=== PATIENT | male | born 1950 | race Caucasian/White ===

== ENCOUNTER → 2017-05-30 | Outpatient (CLI) | payer MEDICARE, OTHER | END | disposition home or self-care (01) | LOC: YCFC.O 07:35 | PROVIDERS: ATTEND Nurse Practitioner Family | DX: Z00.00 Encounter for general adult medical examination without abnormal findings (principal); Z13.220 Encounter for screening for lipoid disorders; Z12.5 Encounter for screening for malignant neoplasm of prostate; D64.9 Anemia, unspecified | CPT/HCPCS: 36415; 80053; 80061; 85025; G0103 ==

== ENCOUNTER → 2017-10-29 | Outpatient (CLI) | payer MEDICARE, OTHER ==
--- NOTE | 2017-10-29 10:13 | RAD ---
EXAM DESCRIPTION: Hip,Left 2 Views CLINICAL HISTORY: 67 years, Male, HIP PAIN COMPARISON: Previous study November 23, 2015 TECHNIQUE: AP and frog leg lateral views of the left hip FINDINGS: Metallic wires and densities are seen lateral to the neck of the femoral component of the prosthesis. These are unchanged compared to previous study. Multiple fine hairlike densities are seen overlying the proximal thigh thought to be in the soft tissues. There is vascular calcification. No complicating fracture of the left hemipelvis. No hip dislocation. Left hemisacrum is questionable thought to be related to overlying calcifications rather than sacral fracture. No change in alignment since previous study. Total left hip arthroplasty is noted. IMPRESSION: Total left hip arthroplasty with no acute hardware complication, fracture or dislocation. Electronically signed by: Navneet Musa MD 10/29/2017 10:12 AM CDT
--- NOTE | 2017-10-29 10:16 | RAD ---
EXAM DESCRIPTION: Knee,Left Complete CLINICAL HISTORY: 67 years, Male, KNEE PAIN COMPARISON: None TECHNIQUE: 4 views of the left knee FINDINGS: No fracture or dislocation. Bones appear osteopenic or osteoporotic with prominent trabecular pattern. Narrowed appearance of medial more than lateral compartments on frontal view. There is sclerosis and eburnation of the lateral compartment. Prominent lateral joint line spurring. Chondrocalcinosis is seen in the medial compartment. Lateral view shows normal position of the patella. Marked narrowing of the patellofemoral joint with prominent posterior patellar spurring. Question small suprapatellar knee joint effusion. Normal contour of quadriceps and patellar tendons. Prominent spurring of the posterior femoral condyles and posterior tibial margin. Meniscal calcification is seen posteriorly. There is vascular calcification in the proximal leg and popliteal region. No abnormal patellar tilt or subluxation on patellar sunrise view. Compared to previous study 18 2015, no change is evident. IMPRESSION: Degenerative changes as described. Electronically signed by: Navneet Musa MD 10/29/2017 10:15 AM CDT
--- NOTE | 2017-10-29 10:18 | RAD ---
EXAM DESCRIPTION: Pelvis CLINICAL HISTORY: 67 years Male, HIP PAIN COMPARISON: None. TECHNIQUE: Single frontal x-ray view of the pelvis including both hips FINDINGS: Total left hip arthroplasty is noted with no dislocation or hardware complication. Old hardware is seen lateral to the neck of the prosthesis with wires. Fine hairlike densities are seen in the proximal thigh unchanged. There is mild narrowing of the right hip joint. Degenerative changes are seen in the lower L-spine and SI joints. IMPRESSION: Negative for fracture or dislocation. Electronically signed by: Navneet Musa MD 10/29/2017 10:17 AM CDT
== END | disposition home or self-care (01) ==
LOC: RAD 07:53
PROVIDERS: ATTEND Orthopaedic Surgery
DX: M25.562 Pain in left knee (principal); M25.552 Pain in left hip

== ENCOUNTER → 2017-11-03 | Outpatient (CLI) | payer MEDICARE, OTHER ==
--- NOTE | 2017-11-04 10:02 | MRI ---
Study: MRI of the Left Femur. Indication: Left thigh mass. 2 weeks of pain and swelling. Technique: Multiplanar, multi sequence MRI of the left femur was obtained without intravenous contrast. Comparison: Radiographs October 29, 2017. Findings: Extensive post surgical changes of left total hip arthroplasty are present button included in their entirety within the field of view. There does appear to be a large left hip effusion both anterior and posterior joint space which tracks distally and is located along the deep/medial margin of the rectus femoris muscle belly and superficial to the vastus medialis muscle belly. Areas of intramuscular extension likely present. This collection measures up to 5 cm AP by 3.2 cm transverse and extends over a craniocaudal length of at least 24 cm to the level of the distal femoral metaphysis. There are thickened hypointense peripheral margins. Scattered intramuscular edema noted throughout the left thigh musculature. Partial visualization of severe tricompartmental left knee osteoarthritis noted with associated moderate size knee effusion. Impression: Partial visualization of a large left hip effusion which communicates with a large multiloculated fluid collection which tracks throughout the anterior aspect of the upper two thirds of the left thigh. Sterility is uncertain. Particle disease as well as septic arthritis and abscess should be highly considered. This collection would be amenable to percutaneous aspiration. Electronically signed by: Mariano Jiménez MD 11/04/2017 10:01 AM CDT
== END | disposition home or self-care (01) ==
LOC: MRI 13:55
PROVIDERS: ATTEND Orthopaedic Surgery
DX: R22.42 Localized swelling, mass and lump, left lower limb (principal)

== ENCOUNTER → 2017-11-09 | Outpatient (CLI) | payer MEDICARE, OTHER ==
--- NOTE | 2017-11-09 14:04 | US ---
EXAM DESCRIPTION: Biopsy/Needle Guidance CLINICAL HISTORY: 67 yearsMaleSEROMA OF MUSCULOSKELETAL STRUCTURE COMPARISON: MRI lower extremity November 03 2017. TECHNIQUE: Transcutaneous scanning of the left thigh utilizing two-dimensional and Doppler modes. Patient gave verbal and written consent. Hypoechoic mass on the distal thigh with solid and cystic components. Site selected for drainage, anterior distal thigh, with sterile preparation and draping. Intradermal and subcutaneous anesthesia with 1% lidocaine and bicarbonate. Under ultrasound guidance, a 18-gauge spinal needle was introduced into the lesion. When fluid pocket was accessed, approximately 6 mL of yellowish jellylike material was aspirated with a 20 mL syringe. The specimen was placed in formalin container for pathologic analysis and culture. The patient tolerated the procedure well with no immediate complications. Skin dressing was applied and patient given home instructions. Sent home in good condition. FINDINGS: Elongated hypoechoic and anechoic lesion from the proximal left lateral thigh to the anterior distal thigh. Multiple images show the echogenic needle within the distal lesion. IMPRESSION: Successful, ultrasound-guided, needle aspiration of complex fluid collection in the anterior distal left thigh. Pathology results pending at remote laboratory. Electronically signed by: Antoine Schwartz MD 11/09/2017 2:03 PM CDT
== END ==
LOC: US 08:00
PROVIDERS: ATTEND Orthopaedic Surgery
DX: M96.842 Postprocedural seroma of a musculoskeletal structure following a musculoskeletal system procedure (principal)

== ENCOUNTER → 2017-12-01 | Outpatient (CLI) | payer MEDICARE, OTHER ==
--- NOTE | 2017-12-01 20:17 | US ---
EXAM DESCRIPTION: Biopsy/Needle Guidance CLINICAL HISTORY: 67 years Male, POSTPROCEDURAL SEROMA. Antibiotics were stopped. November 20, 2017. COMPARISON: Ultrasound-guided drainage of same collection 11/09/2017. TECHNIQUE/FINDINGS: Transcutaneous scanning of the left thigh utilizing two-dimensional and Doppler modes. Patient gave verbal and written consent. Hypoechoic mass on the distal thigh with solid and cystic components. Site selected for drainage, anterior distal thigh, with sterile preparation and draping. Intradermal and subcutaneous anesthesia with 1% lidocaine and bicarbonate. Under ultrasound guidance, a 22-gauge spinal needle was introduced into the lesion. When fluid pocket was accessed, approximately 3 mL of yellowish jellylike material was aspirated with a 20 mL syringe. The specimen was placed in formalin container for culture. An additional 1 mL of this material was aspirated and injected into a purple top tube. The patient tolerated the procedure well with no immediate complications. Skin dressing was applied and patient given home instructions. Sent home in good condition. IMPRESSION: Successful ultrasound-guided aspiration of semisolid collection anterior distal left thigh. Culture results pending. Electronically signed by: Antoine Schwartz MD 12/01/2017 8:15 PM CDT
== END ==
LOC: US 11-27 10:39
PROVIDERS: ATTEND Orthopaedic Surgery
DX: R22.42 Localized swelling, mass and lump, left lower limb (principal); M96.842 Postprocedural seroma of a musculoskeletal structure following a musculoskeletal system procedure; T84.59XD Infection and inflammatory reaction due to other internal joint prosthesis, subsequent encounter

== ENCOUNTER → 2018-02-26 | Outpatient (CLI) | payer MEDICARE, OTHER | LOC: LAB.O 08:42 | PROVIDERS: ATTEND Orthopaedic Surgery | DX: M25.562 Pain in left knee (principal) ==

== ENCOUNTER → 2018-05-10 | Outpatient (CLI) | payer MEDICARE, OTHER | LOC: YCFC.O 16:27 | PROVIDERS: ATTEND Nurse Practitioner Family | DX: D64.9 Anemia, unspecified (principal) ==

== ENCOUNTER 2018-08-30 15:30 | Emergency (ER) | payer MEDICARE, OTHER ==
[2018-08-30 15:56] VITALS: TEMP 98.6; O2SAT 97
[2018-08-30] MEDS ORDERED: predniSONE 20 MG TAB PO ONE (16:03)
--- NOTE | 2018-08-30 16:17 | RAD ---
EXAM DESCRIPTION: Shoulder,Left 2 or More Views CLINICAL HISTORY: 68 years Male pain COMPARISON: None. TECHNIQUE: LEFT SHOULDER two view FINDINGS: No acute fractures or dislocations identified. No osseous destructive lesions. Mild degenerative change at the acromial clavicular joint. There is moderate degenerative change at the glenohumeral joint with loss of the joint space, subchondral sclerosis and osteophytosis. 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 There is narrowing of the acromiohumeral distance consistent shoulder impingement. 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
[2018-08-30] MEDS ORDERED: HYDROcodone 7.5MG/APAP 325MG 1 EA TAB PO ONE (16:20)
--- NOTE | 2018-08-30 16:23 | ED.PDOC ---
History of Present Illness - General Chief Complaint: Trauma Stated Complaint: left shoulder pain Time Seen by Provider: 08/30/18 16:02 Source: patient Exam Limitations: no limitations - History of Present Illness Initial Comments: The patient's 68-year-old male presenting to the emergency room secondary to left shoulder pain for last 3 days. 4 days ago the patient fell on his right side and caught himself with his right side however the following day he was having pain in his left shoulder. He does have some mild pain with flexion and abduction of the shoulder. Strength largely appears preserved. He has been taking a muscle relaxer along with some Aleve and Tylenol No. 3. He has had arthritis in that shoulder before. Severity: moderate Improving Factors: nothing Worsening Factors: nothing Associated Symptoms: denies symptoms Allergies/Adverse Reactions: Allergies Penicillins Allergy (Verified 08/30/18 15:56) Home Medications: Ambulatory Orders Acetamin W/Cod #3 Tab [Tylenol w/CODEINE #3] 1 ea PO Q8HR PRN #14 tab 08/30/18 predniSONE [Prednisone] 20 mg PO DAILY #5 tab 08/30/18 Review of Systems - Review of Systems Constitutional: States: no symptoms reported EENTM: States: no symptoms reported Respiratory: States: no symptoms reported Cardiology: States: no symptoms reported Gastrointestinal/Abdominal: States: no symptoms reported Genitourinary: States: no symptoms reported Musculoskeletal: States: see HPI Skin: States: no symptoms reported Neurological: States: no symptoms reported Endocrine: States: no symptoms reported All other Systems: No Change from Baseline Past Medical History (General) - Patient Medical History Hx Cancer: Yes - skin Surgical History: other - Vaccination History Hx Influenza Vaccination: Yes Hx Pneumococcal Vaccination: No - Social History Hx Tobacco Use: No Hx Alcohol Use: No Hx Substance Use Treatment: No Family Medical History - Family History Mother Family History: Unknown Physical Exam - Physical Exam General Appearance: Alert, Comfortable, No apparent distress Eye Exam: bilateral normal Ears, Nose, Throat: hearing grossly normal, normal ENT inspection, normal pharynx Neck: full range of motion, supple Respiratory: lungs clear, normal breath sounds, no respiratory distress, no accessory muscle use Cardiovascular/Chest: normal peripheral pulses, no edema, other - regular rate Peripheral Pulses: radial,right: 2+, radial,left: 2+ Gastrointestinal/Abdominal: non tender, soft Rectal Exam: deferred Back Exam: no CVA tenderness, no vertebral tenderness, other - mild tenderness to palpation over the left rhomboid muscle Extremity: no pedal edema, normal capillary refill, other - left shoulder soreness diffusely to palpation. No gross deformity. Passive range of motion is preserved. Neurologic: sensor operator II-XII nml as tested, alert, normal mood/affect, oriented x 3 Skin Exam: normal color Comments: Vital Signs - 24 hr 08/30/18 15:45 Temperature 98.6 F Pulse Rate [ 75 pulse ox] Respiratory 16 Rate Blood Pressure 157/92 [Right Arm] O2 Sat by Pulse 97 Oximetry Progress - Progress Progress: 08/30/18 16:26 the patient's 68-year-old male presenting to the emergency room secondary to pain in his left shoulder that is most likely due to a rotator cuff strain. He does have significant arthritis in the shoulder already. He has been instructed on how to do range of motion and stretching exercises for the shoulder. He already has a muscle relaxer that he is taking at home. He is going to be written for 5 days of oral prednisone to help reduce inflammation. He will also receive some Tylenol 3 to use as needed for when the pains at its worst. He needs to follow back up with his primary care doctor next week. ER warnings were given. Departure - Departure Clinical Impression: Rotator cuff strain Qualifiers: Encounter type: initial encounter Laterality: left Qualified Code(s): S46.012A - Strain of muscle(s) and tendon(s) of the rotator cuff of left shoulder, initi al encounter Disposition: Discharge to Home or Self Care Condition: Fair Departure Forms: ED Discharge - Pt. Copy, Patient Portal Self Enrollment Instructions: Rotator Cuff Injury Diet: regular diet Activity: increase activity as tolerated Referrals: Sanam Wilkerson NP [Primary Care Provider] - 1-2 Weeks Prescriptions: Acetamin W/Cod #3 Tab [Tylenol w/CODEINE #3] 1 ea PO Q8HR PRN #14 tab PRN Reason: Moderate To Severe Pain predniSONE [Prednisone] 20 mg PO DAILY #5 tab Home Medications: Ambulatory Orders Acetamin W/Cod #3 Tab [Tylenol w/CODEINE #3] 1 ea PO Q8HR PRN #14 tab 08/30/18 predniSONE [Prednisone] 20 mg PO DAILY #5 tab 08/30/18 Additional Instructions: the patient's 68-year-old male presenting to the emergency room secondary to pain in his left shoulder that is most likely due to a rotator cuff strain. He does have significant arthritis in the shoulder already. He has been instructed on how to do range of motion and stretching exercises for the shoulder. He already has a muscle relaxer that he is taking at home. He is going to be written for 5 days of oral prednisone to help reduce inflammation. He will also receive some Tylenol 3 to use as needed for when the pains at its worst. He needs to follow back up with his primary care doctor next week. ER warnings were given.
[2018-08-30 16:54] VITALS: BP 170/91
== END 2018-08-30 16:50 | disposition home or self-care (01) ==
LOC: ER 15:30
DX: S46.012A Strain of muscle(s) and tendon(s) of the rotator cuff of left shoulder, initial encounter (principal); M19.012 Primary osteoarthritis, left shoulder; W19.XXXA Unspecified fall, initial encounter; Y92.9 Unspecified place or not applicable
CPT/HCPCS: 73030; J7512

== ENCOUNTER → 2018-09-14 | Outpatient (CLI) | payer MEDICARE, OTHER ==
--- NOTE | 2018-09-15 09:58 | MRI ---
Study: MRI of the Left Shoulder. Indication: PAIN Technique: Multiplanar, multi sequence MRI of the left shoulder was obtained without intravenous contrast. Comparison: Radiographs August 30, 2018. Findings: Moderate hypertrophic AC joint osteoarthritis. Type I acromion with mild lateral downsloping. Subcortical cystic change of the posterior margin of the acromion noted. Superior migration humeral head. High-grade articular, near full-thickness, fullwidth supraspinatus tendon tearing with involvement of the anterior margin infraspinatus tendon. Only miniscule bursal surface fibers maintaining continuity to the greater tuberosity. Tear defect measures approximately 3 cm AP by 3 cm transverse with retraction of torn tendon fibers to the level of the AC joint line. Subscapularis tendinosis and attenuation. Teres minor tendon intact. Mild to moderate atrophy and grade 1/2 fatty infiltration rotator cuff musculature and most pronounced at the infraspinatus muscle belly. Intracapsular long head biceps tendinosis. Circumferential labral truncation and degeneration. Severe glenohumeral joint osteoarthritis with complete grade 4 chondral loss, pronounced cortical remodeling, and multifocal subcortical cystic change throughout the joint. There does appear to be multiple ossified loose bodies throughout the joint. No acute fracture identified. Impression: High-grade articular, effectively full-thickness, fullwidth supraspinatus tendon tear with involvement of the anterior infraspinatus tendon. Subscapularis tendinosis and attenuation. Mild/moderate atrophy and grade 1/2 fatty infiltration rotator cuff musculature. Intracapsular long head biceps tendinosis. Severe glenohumeral joint osteoarthritis with multiple loose bodies throughout the joint. Moderate hypertrophic AC joint osteoarthritis. Electronically signed by: Mariano Jiménez MD 09/15/2018 9:55 AM [employer]
== END ==
LOC: MRI 14:00
PROVIDERS: ATTEND Nurse Practitioner Family
DX: M75.42 Impingement syndrome of left shoulder (principal); M75.102 Unspecified rotator cuff tear or rupture of left shoulder, not specified as traumatic

== ENCOUNTER → 2018-09-23 | Outpatient (CLI) | payer MEDICARE, OTHER | LOC: LAB.O 10:07 | PROVIDERS: ATTEND Orthopaedic Surgery | DX: M17.11 Unilateral primary osteoarthritis, right knee (principal); M25.561 Pain in right knee ==

== ENCOUNTER → 2018-11-02 | Outpatient (CLI) | payer MEDICARE, OTHER ==
--- NOTE | 2018-11-02 21:12 | MRI ---
EXAM DESCRIPTION: Cervical Spine CLINICAL HISTORY: 68 years Male, CERVICAL DISC DISORDER AT C5-C6 LEVEL W/RADICULOPATHY COMPARISON: None available. TECHNIQUE: Multiplanar, multiecho imaging of the cervical spine was performed without gadolinium administration. FINDINGS: Reversal of the normal lordotic curvature of the cervical spine is noted. Endplate degenerative changes identified at C6-C7 and C7-T1 levels. There is grade 1 anterolisthesis of C4 over C5, C5-C6 and C7 over T1. Technique mild superior endplate compression deformity with vertebral body with approximately 20% loss of height. Multilevel intervertebral disc space narrowing is noted. The visualized spinal cord demonstrates no signal abnormality. The visualized prevertebral and paravertebral soft tissues appear grossly unremarkable. C2-C3: Disc desiccation and loss of disc height. No central canal stenosis. Bilateral uncovertebral joint arthropathy with resultant mild to moderate right and moderate to severe left neural foraminal narrowing. C3-C4: Disc desiccation and loss of disc height. Mild diffuse disc bulge and uncovertebral joint arthropathy with resultant mild central canal stenosis and mild to moderate bilateral neural foraminal narrowing. C4-C5: Disc desiccation and loss of disc height. Moderate bilateral neural foraminal narrowing is noted secondary to uncovertebral joint arthropathy. C5-C6: Disc desiccation and loss of disc height. Posterior disc osteophyte complex and uncovertebral joint arthropathy with resultant moderate right and moderate to severe left neural foraminal narrowing. C6-C7: Disc desiccation and loss of disc height. Bilateral uncovertebral joint arthropathy with resultant severe right and moderate to severe left neural foraminal narrowing. C7-T1: Moderate right and moderate to severe left neural foraminal narrowing is noted secondary to uncovertebral joint arthropathy. IMPRESSION: Multilevel degenerative disc disease and uncovertebral joint arthropathy throughout the cervical spine with variable degrees of neural foraminal narrowing as detailed above. Electronically signed by: Nick Lin MD 11/02/2018 9:09 PM CDT
== END ==
LOC: MRI 14:00
PROVIDERS: ATTEND Psychiatry & Neurology Neurology
DX: M50.122 Cervical disc disorder at C5-C6 level with radiculopathy (principal)

== ENCOUNTER → 2019-02-01 | Outpatient (CLI) | payer MEDICARE, OTHER | LOC: YCFC.O 10:41 | PROVIDERS: ATTEND Nurse Practitioner Family | DX: R82.90 Unspecified abnormal findings in urine (principal) ==

== ENCOUNTER → 2019-02-03 | Outpatient (CLI) | payer MEDICARE, OTHER ==
--- NOTE | 2019-02-04 08:20 | RAD ---
EXAM DESCRIPTION: Barium Swallow: Rad-Fluoroscopy. CLINICAL HISTORY: DYSPHAGIA. Patient recently fell and injured neck. Difficulty swallowing since the injury. All food consistencies, regardless of the temperature. COMPARISON: None TECHNIQUE: The patient swallowed barium pill with water. The patient swallowed gas-producing granules, water, and heavy density barium under fluoroscopic visualization. The images were obtained with the patient upright and horizontal. Patient drank medium density barium through a straw in the semi-prone position. 105 fluoroscopic cine loop images. 14 static fluoroscopic images. Total fluoroscopy time was 4.9. Total dose 104.23 mGy.. DAP: 19.87 Gy-cm2.. FINDINGS: After the patient swallowed barium pill with difficulty, the pill would not pass distal to the proximal esophagus. The pill moved superiorly and inferiorly in the upper esophagus throughout the examination. The esophagus appears to be narrowed at the level of the inferior movement of the tail, which is at the level of the clavicles. On the swallowing study, a trace amount of contrast is noted in the upper airway without susan aspiration and without coughing. Minimal mass effect on the posterior hypopharynx from the C2 and C3 vertebral bodies anteriorly. Normal caliber of the remainder of the esophagus, with a small hiatal hernia and Schatzki's ring distally with reflux approximately 6 cm into the distal esophagus. No mass effect or mucosal abnormality. Included stomach shows no prominent mucosal abnormality with no mass effect. No gastroduodenal obstruction with good distention of the duodenal bulb. No mass effect. IMPRESSION: 1. Narrowing of the proximal esophagus at the level of the clavicles. Barium pill could not pass distal to this narrowing, with water and barium administration. 2. Trace amount of oral contrast seen in the proximal airway which could represent occult laryngeal penetration. No susan laryngeal aspiration. No coughing. Mass effect on the posterior hypopharynx from the inferior C2 vertebral body and superior C3 vertebral body. 3. Small hiatal hernia and show studies ring of the stomach. Mild gastroesophageal reflux. No mass effect. No mucosal abnormality. Electronically signed by: Antoine Schwartz MD 02/04/2019 8:18 AM CDT
== END ==
LOC: RAD 08:25
PROVIDERS: ATTEND Nurse Practitioner Family
DX: K22.9 Disease of esophagus, unspecified (principal); K44.9 Diaphragmatic hernia without obstruction or gangrene; K21.9 Gastro-esophageal reflux disease without esophagitis

== ENCOUNTER → 2019-03-08 | Outpatient (CLI) | payer MEDICARE, OTHER | LOC: LAB.O 14:47 | PROVIDERS: ATTEND Surgery | DX: L02.91 Cutaneous abscess, unspecified (principal) ==

== ENCOUNTER → 2019-05-16 | Outpatient (CLI) | payer MEDICARE, OTHER ==
--- NOTE | 2019-05-11 01:11 | RAD ---
EXAM DESCRIPTION: Hip,Right 2 Views CLINICAL HISTORY: 69 years Male, HIP PAIN COMPARISON: Pelvic radiographs 10/29/2017 TECHNIQUE: 2 views of the right. IMPRESSION: Partially visualized left hip arthroplasty. No acute displaced fracture. No dislocation. Moderate arthrosis of the right hip as evident by superior joint space narrowing and subchondral sclerosis predominantly along the acetabular roof. Worsened when compared to 10/29/2017. Intact pubic joint. Electronically signed by: Puneet Hale MD 05/11/2019 1:09 AM CDT
--- NOTE | 2019-05-11 01:20 | RAD ---
EXAM DESCRIPTION: Knee,Left Complete CLINICAL HISTORY: 69 years Male, PAIN IN LEFT KNEE COMPARISON: 10/29/2017. TECHNIQUE: 3 views of the left knee. IMPRESSION: No acute displaced fracture. No dislocation. Severe narrowing of the weightbearing knee compartments. Severe subchondral sclerosis predominantly, greatest along the medial tibial plateau and medial femoral condyle as before. Moderate medial and severe left lateral marginal osteophytes. Ill-defined calcification within the medial compartment which may represent chondrocalcinosis versus meniscal degeneration. Severe patellofemoral arthrosis. No significant knee joint effusion. No lateral patellofemoral. No radiographically apparent soft tissue abnormality. No significant interval change when compared to 10/29/2017. Electronically signed by: Puneet Hale MD 05/11/2019 1:19 AM CDT
--- NOTE | 2019-05-11 01:23 | RAD ---
EXAM DESCRIPTION: Knee,Right Complete CLINICAL HISTORY: 69 years Male, PAIN IN RIGHT KNEE COMPARISON: None. TECHNIQUE: 3 views of the right. IMPRESSION: No acute displaced fracture. No dislocation. Severe medial and moderate lateral narrowing of the weightbearing knee compartments. Severe underlying subchondral sclerosis along the medial tibial plateau and medial femoral condyle. Small marginal osteophytes extending off the medial lateral tibial plateau. Osteophytosis of the lateral joint line. Severe patellofemoral arthrosis. Ill-defined calcification within the suprapatellar bursa which may represent loose bodies. No lateral patellar tilt. No radiopaque foreign body. Vascular calcification. Electronically signed by: Puneet Hale MD 05/11/2019 1:22 AM CDT
--- NOTE | 2019-05-11 01:36 | RAD ---
EXAM DESCRIPTION: Lumbar Spine 5 Views CLINICAL HISTORY: 69 years Male, PAIN COMPARISON: None. TECHNIQUE: 5 views of the lumbosacral spine. IMPRESSION: 5 lumbar type vertebral bodies. Most inferior disc space designated as L5-S1. Possible compression deformity along the superior endplate of L3 and superior endplate L4. MR lumbar spine may be obtained to further evaluate for acute compression fracture. Mild lumbar lordosis centered at L4. Grade 1 retrolisthesis of L3 on L4. Severe facet arthropathy at L4-5, L5-S1. Moderate narrowing of the and L2-L3 and L3-L4 disc spaces with vacuum disc phenomenon consistent with disc degeneration. IVC filter in place. Electronically signed by: Puneet Hale MD 05/11/2019 1:35 AM CDT
--- NOTE | 2019-05-16 17:20 | MRI ---
EXAM DESCRIPTION: Lumbar Spine w/o Contrast : Magnetic Resonance Imaging. CLINICAL HISTORY: LUMBAR RADICULOPATHY COMPARISON: Lumbar spine radiographs 10 May 2019. TECHNIQUE: Multiplanar, multiple standard sequences, non contrast MRI, lumbar spine. FINDINGS: L5-S1: The disc is well visualized on axial T2 series 501, image 3. Disc desiccation posterior broad-based bulge. Minimal posterior flavum ligament thickening. AP canal diameter 12.5 mm. Right posterior lateral disc bulge with ligament thickening resulting in right foraminal stenosis. Moderate narrowing left foramen. Atypical hemangioma hyperintense on all sequences superior L5 endplate. L4-L5: Disc desiccation and minimal disc space loss. Minimal anterior bulge. 2 mm grade 1 anterolisthesis. Hypertrophic facet arthrosis and thickened ligaments with AP canal diameter 10 mm. Disc abutting the bilateral descending L5 nerves. Moderate left foraminal narrowing with disc- facet and bony right foraminal stenosis. L3-L4: Disc desiccation and minimal disc space loss. Anterior disc bulge with endplate reaction. Retrolisthesis 3 mm. Bilateral narrowing of the subarticular recesses. Bilateral hypertrophic facet arthrosis and thickening of the ligaments AP canal diameter 12 mm. Moderate to severe right foraminal narrowing bilaterally, more on the right L2-L3: Disc desiccation and disc space loss more anteriorly with endplate reaction and disc bulge. Grade 1 retrolisthesis 2 mm. Posterior disc bulge more to the left of midline with effacement of the left subarticular recess. Bilateral hypertrophic facet arthrosis and thickening of the ligaments. AP canal diameter 11 mm. Disc endplate bulge into the left foramen and moderate to severe foraminal narrowing. Similar degree of narrowing of the right foramen. L1-L2: Disc desiccation and minimal disc space loss with anterior bulging. Minimal posterior broad-based bulge. Posterior moderate hypertrophic facet arthrosis and ligament thickening. AP canal diameter 12 mm. Bilateral moderate foraminal narrowing. T12-L1: Disc desiccation disc space maintained. Right side herniation of the disc with inferior extrusion involving the right epidural space and effacing the right subarticular recess and mass effect on the right L1 nerve. Disc also bulging into the right foramen with narrowing. Disc is almost abutting the conus which terminates at this level. Left foramen patent. AP canal diameter right of midline 9 mm. No significant scoliosis. Paravertebral soft tissues minimal paraspinal muscle atrophy and atrophy of the left psoas muscle extending to the left iliopsoas. Also atrophy in the left rell is muscle. Distal cord normal signal and caliber. Overlies normal marrow signal in the remaining vertebral bodies and the posterior elements. Artifact is partially obscuring the L5-S1 endplates and sacrum on the inversion recovery sequence. Vertebral bodies are not compressed at any level. IMPRESSION: 1. Multiple levels of disc desiccation, disc space loss, spondylosis, thickening of the posterior flavum ligaments and hypertrophy of the facets. 2. Multifactorial right foraminal stenosis L5-S1. Moderate canal narrowing. 3. Borderline mild central canal stenosis L4-L5 is multifactorial. Disc abutting the bilateral descending L5 nerves in the subarticular recesses. Right foraminal stenosis. 4. Grade 1 retrolisthesis L3-L4. Bilateral narrowing of the subarticular recesses. Moderate canal narrowing. Moderate to severe right foraminal narrowing. 5. L2-L3 grade 1 retrolisthesis. Bulging disc and endplate spurs with effacement of the left subarticular recess and possible compromise descending left L3 nerve. Moderate to severe central canal narrowing. Bilateral moderate to severe foraminal narrowing. 6. Right posterior herniation of the T12-L1 disc encroaching on the right subarticular recess stenosis and impinging the right L1 nerve. Abutting the conus. Right paracentral mild canal stenosis. Narrowing of the right foramen. Electronically signed by: Antoine Schwartz MD 05/16/2019 5:18 PM CDT
== END ==
LOC: MRI 14:00
PROVIDERS: ATTEND Psychiatry & Neurology Neurology
DX: M51.16 Intervertebral disc disorders with radiculopathy, lumbar region (principal); M51.15 Intervertebral disc disorders with radiculopathy, thoracolumbar region; M48.061 Spinal stenosis, lumbar region without neurogenic claudication; M48.07 Spinal stenosis, lumbosacral region; M43.16 Spondylolisthesis, lumbar region

== ENCOUNTER 2019-06-08 11:56 | Emergency (ER) | payer MEDICARE, OTHER ==
--- NOTE | 2019-06-08 12:21 | ED.PDOC ---
History of Present Illness - General Chief Complaint: Problem Stated Complaint: right flank pank Time Seen by Provider: 06/08/19 12:20 Source: patient Exam Limitations: no limitations - History of Present Illness Initial Comments: 69 yo M with hx of L hip infection s/p replacement currently on cefepime through PICC BID who presents to the ED for R flank pain that radiates into his abd onset one month ago, worsening in the past several days. Associated dysuria, frequency, decreased stream. Was seen by his PCP for what he thought was a UTI however the UA was not concerning for infection. Pt is concerned for a possible kidney stone as he has had those in the past. Denies f/c, cough, congestion, CP, SOB, n/v/d. Allergies/Adverse Reactions: Allergies Penicillins Allergy (Mild, Verified 01/07/19 09:39) Rash Home Medications: Ambulatory Orders Acetamin W/Cod #3 Tab [Tylenol w/CODEINE #3] 1 ea PO Q6H PRN 06/08/19 Aspirin [Aspirin Low Strength] 81 mg PO DAILY 06/08/19 Cefepime HCl [Cefepime] 1 gm IJ BID 06/08/19 Multiple Vitamins W/ Minerals [Multivitamin Adults] 1 tab PO DAILY 06/08/19 Review of Systems - Review of Systems Constitutional: Denies: chills, fever EENTM: States: no symptoms reported Respiratory: Denies: cough, short of breath Cardiology: Denies: chest pain, palpitations Gastrointestinal/Abdominal: States: abdominal pain. Denies: diarrhea, nausea, vomiting Genitourinary: States: dysuria, frequency, other - decreased stream. Denies: hematuria Musculoskeletal: Denies: back pain, neck pain Skin: Denies: change in color, lesions, rash Neurological: Denies: headache, numbness, weakness Endocrine: Denies: increased thirst, increased urine Past Medical History (General) - Patient Medical History Hx Cancer: Yes - skin - Vaccination History Hx Influenza Vaccination: Yes Hx Pneumococcal Vaccination: No - Social History Hx Tobacco Use: No Hx Alcohol Use: No Hx Substance Use Treatment: No Family Medical History - Family History Mother Family History: Unknown Physical Exam - Physical Exam General Appearance: Alert, Comfortable, Well Developed, Well Groomed, Well Hydrated, Well Nourished Neck: full range of motion, supple Respiratory: lungs clear, normal breath sounds, no respiratory distress, no accessory muscle use Cardiovascular/Chest: normal peripheral pulses, regular rate, rhythm, no edema, no gallop, no JVD, no murmur Peripheral Pulses: radial,right: 2+, radial,left: 2+ Gastrointestinal/Abdominal: normal bowel sounds, non tender, soft, no organomegaly, no pulsatile mass, other - No penile swelling. No testicular swelling, erythema, TTP. Back Exam: normal inspection, no CVA tenderness, no vertebral tenderness Extremity: normal range of motion, non-tender, normal inspection, no pedal edema Neurologic: no motor/sensory deficits, alert, normal mood/affect, oriented x 3 Skin Exam: normal color, warm/dry Progress - Progress Progress: 06/08/19 17:28 I have explained and reviewed all results with the pt. I explained that emergent conditions may arise and to return to the ER for new, worsening, or any persistent conditions. I've explained the importance of f/u for recheck. All questions and concerns addressed at this time. Pt understands and agrees with plan. Pt well appearing, NAD, is stable for discharge. Anamaria Lowry MD Emergency Medicine Physician Billing Number [id number] Departure - Departure Clinical Impression: Urinary retention Time of Disposition: 15:24 Disposition: Transfer to Hospital Health Concerns: Condition: stable Departure Forms: ED Discharge - Pt. Copy, Patient Portal Self Enrollment Instructions: Urinary Retention (DC) Referrals: Roe Bolden MD [Primary Care Provider] - 1 Week SASCHA BREWER MD [Consulting Staff] - 1-2 Days Home Medications: Ambulatory Orders Acetamin W/Cod #3 Tab [Tylenol w/CODEINE #3] 1 ea PO Q6H PRN 06/08/19 Aspirin [Aspirin Low Strength] 81 mg PO DAILY 06/08/19 Cefepime HCl [Cefepime] 1 gm IJ BID 06/08/19 Multiple Vitamins W/ Minerals [Multivitamin Adults] 1 tab PO DAILY 06/08/19 Additional Instructions: Follow up: [facility], As needed, if symptoms worsen
--- NOTE | 2019-06-08 14:20 | CT ---
EXAM DESCRIPTION: Abdomen/Pelvis w/Contrast CLINICAL HISTORY: 69 years Male, pain COMPARISON: None available. TECHNIQUE: Contiguous 3 mm axial images were obtained from the lung bases to the level of the proximal femora after the administration of intravenous and oral contrast. Sagittal and coronal reconstructions were reviewed. FINDINGS: THORAX: The imaged lower thorax demonstrates no gross abnormality. LIVER: The liver demonstrates normal size and density with no intrahepatic biliary ductal dilatation or focal masses. GALLBLADDER: Gallstones are noted. PANCREAS: Appears normal with no cystic or solid lesions. SPLEEN: Normal ADRENAL GLANDS: Normal with no nodules or masses. KIDNEYS: Moderate hydroureteronephrosis of both kidneys with no definite obstructive lesion. Significantly distended urinary bladder is noted. The visualized ureters appear grossly unremarkable. STOMACH: Not well distended limiting detailed evaluation. SMALL BOWEL: The small bowel loops demonstrate variable degrees of distention with no abnormal dilatation or other signs to suggest bowel obstruction. LARGE BOWEL: Majority of the colon is thought well-distended limiting detailed evaluation. Few scattered colonic diverticuli are noted throughout the colon. The appendix is well-visualized and appears normal No evidence of free intraperitoneal air or fluid. RETROPERITONEUM: The abdominal aorta is nonaneurysmal with mild atherosclerosis. Inferior vena cava filter is identified. No abnormally enlarged retroperitoneal lymph nodes are identified. URINARY BLADDER: Significantly distended urinary bladder represents urinary retention. Changes of TURP are noted in the prostate gland. Limited evaluation of the pelvic structures due to the presence of hardware in the left hip. ADDITIONAL FINDINGS: None. BONES: Mild degenerative changes are identified in the visualized bones. Grade 1 retrolisthesis of L3 over L4. IMPRESSION: 1. Significantly distended urinary bladder most likely represent changes of urinary retention. Reflux is noted into the bilateral ureters with resultant moderate hydroureteronephrosis of both kidneys. 2. Colonic diverticulosis. 3. Cholelithiasis. This exam was performed according to our departmental dose-optimization program, which includes automated exposure control, adjustment of the mA and/or kV according to patient size and/or use of iterative reconstruction technique. Electronically signed by: Julieta Watts MD 06/08/2019 2:19 PM CONSTRUCTION ACCOUNTANT
--- NOTE | 2019-06-08 16:50 | US ---
EXAM DESCRIPTION: Bladder: ULTRASOUND. CLINICAL HISTORY: 69 years Male urinary retention COMPARISON: None Available. TECHNIQUE: Transcutaneous scanning: Whitney-scale and Doppler modes. FINDINGS: Urinary bladder is markedly distended. Prevoid dimensions are 15.3 x 11.5 x 10.2. Estimated volume of 939.1 mL. Post void dimensions 16.5 x 11.9 x 1.6 cm for an estimated volume of 991.6 mm, indicating that the patient could not void any significant amount. Ureteral jets were not seen within the urinary bladder by Doppler. No significant mass effect. No fluid collection in the adjacent soft tissues. IMPRESSION: Markedly distended urinary bladder, almost 1 L. Patient unable to void voluntarily. Electronically signed by: Antoine Schwartz MD 06/08/2019 4:49 PM IN STORE BANKER
[2019-06-08 20:07] VITALS: BP 142/91; TEMP 98.8; O2SAT 99
== END 2019-06-08 20:21 | disposition short-term general hospital (02) ==
LOC: ER 11:56
DX: R33.9 Retention of urine, unspecified (principal); R10.9 Unspecified abdominal pain; R30.0 Dysuria; N13.30 Unspecified hydronephrosis; Z85.828 Personal history of other malignant neoplasm of skin; Z79.82 Long term (current) use of aspirin; Z79.899 Other long term (current) drug therapy; Z88.0 Allergy status to penicillin

== ENCOUNTER 2019-07-22 11:43 | Emergency (ER) | payer MEDICARE, OTHER ==
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
--- NOTE | 2019-07-22 13:50 | CT ---
EXAM DESCRIPTION: Lumbar Spine w/Contrast CLINICAL HISTORY: Back pain with recent trauma. Sx 4 weeks ago COMPARISON: MRI May 17, 2019 TECHNIQUE: Postcontrast transaxial CT images of the lumbar spine are obtained with coronal and sagittal reconstructed images. This exam was performed according to our departmental dose-optimization program, which includes automated exposure control, adjustment of the mA and/or kV according to patient size and/or use of iterative reconstruction technique . FINDINGS: GENERAL Lumbar vertebral body heights are maintained. Trace retrolisthesis of L2 on L3 and L3 on L4 is again seen. Interval postsurgical changes from L4 laminectomy. Calcifications of the mitral valve annulus are Moderate atherosclerotic disease in the abdomen and pelvis. Calcified gallstone in the dependent portion of the gallbladder measuring 9 mm. IVC filter is seen. 2 mm nonobstructing calcification in the midpole calyx of the left kidney. Mild degenerative changes of the sacroiliac joints. Nonaggressive-appearing sclerotic lesions measuring less than 1 cm in the left sacrum and iliac bone. L1-2 Moderate disc space narrowing. Moderate facet hypertrophic and degenerative changes. Mild spinal canal stenosis and mild bilateral foraminal encroachment. L2-3 Moderate to severe disc space narrowing with anterior vacuum disc. Broad-based disc bulge and mild facet arthrosis results in mild spinal canal stenosis with at least mild bilateral foraminal encroachment. L3-4 Moderate disc space narrowing with central vacuum disc. Mild bilateral facet arthrosis and ligamentum flavum thickening contributes to mild spinal canal stenosis. Moderate left greater than right foraminal encroachment is seen. L4-5 Mild diffuse disc space narrowing and broad-based disc bulge. Moderate bilateral facet hypertrophic and degenerative changes status post ligamentum flavum resection. Interval improvement of the previously seen spinal canal stenosis. Moderate to severe right and moderate left foraminal encroachment is again seen. Small fluid collection with low-attenuation posterior to the thecal sac in the laminectomy site measures 9 mm AP by 10 mm transverse small amount of fluid extending between the paraspinal muscles. Fluid attenuation in the subcutaneous soft tissue of the midline paraspinal musculature measures 12 mm AP by 10 mm transverse by 7.9 cm craniocaudal extending from the L2-L5 level. L5-S1 Mild disc space narrowing. Mild bilateral facet arthrosis. Moderate right and mild left foraminal encroachment is seen. IMPRESSION: Interval postsurgical changes from L4 laminectomy with improvement of the previously seen spinal canal stenosis. Small fluid collection in the L4 laminectomy site could represent postop hematoma or seroma versus CSF leak. Low-attenuation fluid collection in the subcutaneous soft tissue from L2 through L5 may communicate with the small posterior thecal sac fluid collection at the L4 level between the paraspinal musculature. Differential includes hematoma seroma versus CSF leak or pseudomeningocele. Sterility of the fluid collections cannot be determined on CT imaging. Stable moderate to severe disc degenerative changes and facet arthropathy of the lumbar spine compared to previous exam otherwise. Electronically signed by: Jermaine Werner MD 07/22/2019 1:48 PM [facility]
[2019-07-22 16:01] VITALS: BP 176/105; TEMP 96.1; O2SAT 99
[2019-07-23] MEDS ORDERED: SODIUM CHL 0.9% 50ML MIN-BAG+ 50 ML IVPB ONE (06:58)
== END 2019-07-22 15:20 | disposition home or self-care (01) ==
LOC: ER 11:43
DX: M54.5 Low back pain (principal); W01.198A Fall on same level from slipping, tripping and stumbling with subsequent striking against other object, initial encounter; Z98.890 Other specified postprocedural states; Z85.828 Personal history of other malignant neoplasm of skin; Z87.891 Personal history of nicotine dependence; Z79.82 Long term (current) use of aspirin; Z79.899 Other long term (current) drug therapy; Z88.0 Allergy status to penicillin; Y92.89 Other specified places as the place of occurrence of the external cause

== ENCOUNTER → 2019-12-02 | Outpatient (CLI) | payer MEDICARE, OTHER ==
--- NOTE | 2019-12-02 09:52 | RAD ---
EXAM DESCRIPTION: XR CHEST 2 VIEWS CLINICAL HISTORY: N35.9 COMPARISON: 05/05/2019 TECHNIQUE: PA/lateral FINDINGS: Heart size is normal. Removal of PICC line. Lungs are hyperinflated similar to the previous study. Costophrenic angles not completely included on the frontal radiograph. Vague irregular opacity in the right midlung slightly more prominent. Rib overlap may account for this appearance, summation shadow. Lungs are otherwise clear. Severe arthrosis of the bilateral shoulders. No acute bony abnormality. IMPRESSION: Hyperinflation consistent with COPD Focal irregular opacity in the right midlung. Recommend chest CT for further characterization to exclude developing nodule Electronically signed by: Viet Phoenix MD 12/02/2019 9:51 AM CDT
== END ==
LOC: LAB.O 08:49
PROVIDERS: ATTEND Urology
DX: Z01.818 Encounter for other preprocedural examination (principal); N35.919 Unspecified urethral stricture, male, unspecified site; J98.4 Other disorders of lung; A49.02 Methicillin resistant Staphylococcus aureus infection, unspecified site; T81.40XS Infection following a procedure, unspecified, sequela

== ENCOUNTER → 2019-12-20 | Outpatient (CLI) | payer MEDICARE, OTHER ==
--- NOTE | 2019-12-21 09:36 | CT ---
EXAM DESCRIPTION: Chest w/Contrast : Computed Tomography. CLINICAL HISTORY: 69 years Male OTHER DISORDERS OF LUNG COMPARISON: 2 view chest x-ray December 01. TECHNIQUE: Spiral-axial scans at 5 x 5 mm intervals through the lungs and thorax with IV contrast. 2.5 x 5 mm lung algorithm axial reconstructions. Coronal and sagittal 2.0 Mm reconstructions. No adverse reactions. Total Exam DLP: 618 mGy-cm. This exam was performed according to our departmental dose-optimization program which includes automated exposure control, adjustment of the mA and/or kV according to patient size and/or use of iterative reconstruction technique; to reduce radiation dose to as low as reasonably achievable (ALARA). Nodule measurements under 10 mm are given as mean value of 3 axes diameters. FINDINGS: Lungs and large airways: Pleural parenchymal scarring, right upper lobe, right middle lobe, right lower lobe, left lower lobe. Combination of parenchymal scarring, pleural thickening, and thickening of the lateral pleural insertion of the right major fissure on axial series 4, images 61-68. This is approximately location of chest x-ray finding. Bilateral perihilar peribronchial wall thickening. No abnormal nodules and no mass. No focal infiltrates.. Pleural spaces: Bilateral focal and diffuse minimal pleural thickening. No effusion or pneumothorax. Mediastinum and Diane: Small lymph nodes with no dominant soft tissue mass. Great vessels and Heart: Surgical hardware. Coronary artery calcifications and possible stents. Atherosclerotic calcifications brachiocephalic vessels and aorta. Soft tissues of neck base, axillae, and chest wall: Collateral venous chest wall flow during the injection on the left side and back. Small axillary nodes. Upper abdomen: No free air or free fluid in the included peritoneal. 1 cm stone in the gallbladder. Spleen and adrenal glands negative. Atherosclerotic calcifications. Osseous structures: Severe arthrosis bilateral glenohumeral joints. Minimal arthrosis manubriosternal joint and in the sternoclavicular joints. Multiple levels of thoracic spondylosis.. IMPRESSION: 1. Pleural parenchymal scarring in the bilateral lungs with prominent pleural parenchymal scar also involving focal pleural thickening in the lateral superior right major fissure, which corresponds to the chest x-ray finding. No abnormal nodules and no mass. 2. 1 cm stone in the gallbladder. Also seen on abdominal CT scan May 2019. Correlate with clinical findings. 3. Severe bilateral glenohumeral joint arthrosis. This could cause clinically "frozen" shoulder bilaterally. Please refer to MRI scan left shoulder August 2018. Electronically signed by: Antoine Schwartz MD 12/21/2019 9:35 AM CDT
== END ==
LOC: CT 09:38
PROVIDERS: ATTEND Urology
DX: J98.4 Other disorders of lung (principal); K80.20 Calculus of gallbladder without cholecystitis without obstruction; M19.011 Primary osteoarthritis, right shoulder; M19.012 Primary osteoarthritis, left shoulder

== ENCOUNTER → 2020-03-05 | Outpatient (CLI) | payer MEDICARE, OTHER ==
--- NOTE | 2020-03-05 12:56 | RAD ---
EXAM DESCRIPTION: Knee,Left Complete CLINICAL HISTORY: 70 years Male, PAIN IN LEFT KNEE COMPARISON: None. Findings: Four view(s)/radiograph(s) Severe left knee osteoarthritis with preferential involvement of the lateral compartment. Discal chondrocalcinosis. Osteopenia. Vascular calcifications. Remodeling of the lateral tibial plateau weightbearing surface. No significant joint effusion. Tricompartmental osteophytes. Patellofemoral narrowing. Surgical suture overlies the medial femoral condyle. IMPRESSION: Severe left knee osteoarthritis. No acute osseous abnormality identified although evaluation is limited by osteopenia. Electronically signed by: Louie Gaitan MD 03/05/2020 12:55 PM CDT
--- NOTE | 2020-03-05 12:56 | RAD ---
EXAM DESCRIPTION: Pelvis, single view CLINICAL HISTORY: HIP PAIN RIGHT AND LEFT FINDINGS/ IMPRESSION: Left hip arthroplasty. No diagnostic acute bony abnormality. No periprosthetic fracture or osteolysis. 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 Normal mineralization. No fracture of the right proximal femur or pelvis Osteoarthritis bilateral sacroiliac joints, moderate on the left and mild on the right. Electronically signed by: Viet Phoenix MD 03/05/2020 12:54 PM CDT
--- NOTE | 2020-03-05 12:57 | RAD ---
4radiograph right knee Indication: PAIN IN RIGHT KNEE Comparison: None. Impression: Severe medial compartment osteoarthritis with [id number] appearance and resultant varus angulation of the knee. Moderate to severe osteoarthritis of the lateral and patellofemoral compartments. Large joint line osteophytes. Bones No fracture identified. Small knee effusion noted with scattered loose bodies throughout the joint space. Osteopenia. If this is a new finding, DEXA scan recommended as well as evaluation for possible osteoporosis treatment. Electronically signed by: Mariano Jiménez MD 03/05/2020 12:55 PM CDT
== END ==
LOC: RAD 09:40
PROVIDERS: ATTEND Orthopaedic Surgery
DX: M17.0 Bilateral primary osteoarthritis of knee (principal); M85.851 Other specified disorders of bone density and structure, right thigh; M85.852 Other specified disorders of bone density and structure, left thigh; M25.761 Osteophyte, right knee; M23.41 Loose body in knee, right knee; M25.461 Effusion, right knee; M25.851 Other specified joint disorders, right hip; M47.898 Other spondylosis, sacral and sacrococcygeal region; Z96.642 Presence of left artificial hip joint

== ENCOUNTER → 2020-04-23 | Outpatient (CLI) | payer MEDICARE, OTHER | LOC: LAB.O 16:43 | PROVIDERS: ATTEND Internal Medicine Infectious Disease | DX: A49.02 Methicillin resistant Staphylococcus aureus infection, unspecified site (principal); T81.40XS Infection following a procedure, unspecified, sequela ==

== ENCOUNTER → 2020-05-31 | Outpatient (CLI) | payer MEDICARE, OTHER | LOC: LAB.O 10:13 | PROVIDERS: ATTEND Internal Medicine Infectious Disease | DX: M96.842 Postprocedural seroma of a musculoskeletal structure following a musculoskeletal system procedure (principal) ==

== ENCOUNTER → 2020-08-16 | Outpatient (CLI) | payer MEDICARE, OTHER | LOC: YCFC.O 08:23 | PROVIDERS: ATTEND Family Medicine | DX: M01.X0 Direct infection of unspecified joint in infectious and parasitic diseases classified elsewhere (principal) ==